=== PATIENT | female | born 2005 | race Hispanic/Latino ===

== ENCOUNTER 2025-02-02 13:26 | Emergency (ER) | payer OTHER ==
[2025-02-02 14:54] LABS: Glucose, Urine (Dipstick) Normal (Negative); Leukocyte Negative (Negative); Protein, Urine (Dipstick) 15 mg/dl (Neg-Trace); Specific Gravity, Urine 1.005 (1.005-1.030)
[2025-02-02 14:57] LABS: Pregnancy Test - Urine (BHCG) Negative (Negative); Pregu Control Background? CLEAR/WHITE (CLR/WHITE); Pregu Control Bar Appear? YES (CONTROL BAR)
[2025-02-02 15:27] LABS: Bacteria/HPF Rare-Few HPF (None Seen); CAUTI Indications for Culture Pelvic or flank pain; RBC/HPF None Seen HPF (0-3); WBC/HPF None Seen HPF (0-3)
[2025-02-02 15:29] LABS: Urine Culture Reflex No No
== END 2025-02-02 15:23 | disposition home or self-care (01) ==
LOC: CSHERS 13:26
DX: R10.84 Generalized abdominal pain (principal)
CPT/HCPCS: 71045; 81001; 81025